=== PATIENT | female | born 1960 | race Caucasian/White ===

== ENCOUNTER 2024-01-29 00:39 | Emergency (ER) | payer SELFPAY ==
[2024-01-29 00:46] VITALS: BP 161/63; RESP 18; TEMP 98.1; BMI 26.6
[2024-01-29 01:07] VITALS: PULSE 78
[2024-01-29] MEDS ORDERED: methylPREDNISolone NA SUCC 125 MG/2 ML VIAL ONE (01:30)
[2024-01-29] MEDS: methylPREDNISolone NA SUCC 125 MG/2 ML VIAL IVPB ONE (01:33)
== END 2024-01-29 04:29 | disposition home or self-care (01) ==
LOC: JER 00:39
PROC: 3E033GC Introduction of Other Therapeutic Substance into Peripheral Vein, Percutaneous Approach (ICD-10-PCS; principal; 2024-01-29)
PROC: 3E033GC Introduction of Other Therapeutic Substance into Peripheral Vein, Percutaneous Approach (ICD-10-PCS; 2024-01-29)
DX: K14.8 Other diseases of tongue (principal)
CPT/HCPCS: 99284-25